=== PATIENT | male | born 1960 | race Caucasian/White ===

== ENCOUNTER 2018-01-31 12:15 | Emergency (ER) | payer OTHER ==
[2018-01-31 12:25] VITALS: RESP 16; TEMP 98.6
--- NOTE | 2018-01-31 12:36 | CPEKG ---
Heart Rate: 64 RR Interval: 938 P-R Interval: 172 QRSD Interval: 108 QT Interval: 424 QTC Interval: 438 P [place]: 21 QRS [place]: 55 T Wave [place]: 42 EKG Severity - ABNORMAL ECG - EKG Impression: SINUS RHYTHM EKG Impression: INCOMPLETE RIGHT BUNDLE BRANCH BLOCK Electronically Signed By: Vince Padgett 31-Jan-2018 20:32:40
[2018-01-31 12:52] LABS: PLATELET COUNT 246 10^3/uL (150-400)
--- NOTE | 2018-01-31 12:59 | EDPHY ---
HPI/HX/ROS/PE/MDM Narrative: CHIEF COMPLAINT: Right-sided chest pain HPI: The patient is a 57 y/o male complaining of an aching right-sided chest pain, onset Thursday, 2 days ago. For the past several weeks he has had dizziness and occipital headaches. He saw his PCP at [facility], who thought the patient was experiencing these symptoms due to dehydration. Two days ago was his last dizziness episode, but he also developed right-sided chest pain on Thursday. Today the chest pain migrated and is now in his mid- chest. He became concerned today as he was "not feeling right" due to the chest pain. The pain becomes exacerbated with exertion or at the end of a deep breath. The pain currently feels like a pulled muscle and is aching. He has been swimming and snowboarding recently and was unsure if he pulled a muscle while working out. He has not experienced chest pain or SOB during these activities. His mother's side of the family does have a history of cardiac disease. No fever, abdominal pain, paresthesias or numbness. REVIEW OF SYSTEMS: Aside from elements discussed in the HPI, a comprehensive 10-point review of systems was reviewed and is negative. PMH: Denies. No cardiac risk factors. SOCIAL HISTORY: Lives in [place], employed in [employer], single PHYSICAL EXAM: General: Patient is alert, in no acute distress. ENT: Eyes are normal to inspection. ENT inspection normal. Neck: Normal inspection. Full range of motion. Respiratory: No respiratory distress. Breath sounds normal bilaterally. Cardiovascular: Regular rate and rhythm. Strong peripheral pulses. Normal cap refill. Abdomen: The abdomen is nontender to palpation. There are no peritoneal signs. There are normal bowel sounds. Back: Normal to inspection. No tenderness to palpation. Skin: Normal color. No rash. Warm and dry. Extremities: Normal appearance. Full range of motion. Neuro: Oriented x3. Normal motor function. Normal sensory function. Portions of this note were transcribed by an ED scribe. I personally performed the history, physical exam, and medical decision making; and confirm the accuracy of the information in the transcribed note. ED Course: 1234: EKG was ordered and interpreted by myself. Please see [facility] system for official reading. 1400: Patient's laboratory and imaging results are normal. 1404: Reassessed patient and discussed imaging and laboratory results. I have advised him to follow up with Dr. Ladd, patent litigation associate, in the next week for his symptoms. Return precautions provided; patient is comfortable with this plan. MDM: This patient presents with atypical chest pain and his HEART score is quite low. Initial workup is negative and there is no evidence for ACS, PNA, PTX, TAD , PE. He is comfortable with plan for discharge. - Data Points Imaging Results: Imaging Impressions Chest X-Ray 01/31/18 12:41 Impression: Clear lungs except for minimal left basilar atelectasis. Imaging: I viewed and interpreted images myself Laboratory Results: Laboratory Results 01/31/18 12:45 01/31/18 12:41 01/31/18 01/31/18 01/31/18 12:45 12:45 12:41 WBC 4.55 10^3/uL 10^3/uL (3.80-9.50) RBC 5.17 10^6/uL 10^6/uL (4.40-6.38) Hgb 15.9 g/dL g/dL (13.7-17.5) Hct 45.1 % % (40.0-51.0) MCV 87.2 fL fL (81.5-99.8) MCH 30.8 pg pg (27.9-34.1) MCHC 35.3 g/dL g/dL (32.4-36.7) RDW 12.3 % % (11.5-15.2) Plt Count 246 10^3/uL 10^3/uL (150-400) MPV 9.8 fL fL (8.7-11.7) Neut % (Auto) 52.7 % % (39.3-74.2) Lymph % (Auto) 33.6 % % (15.0-45.0) [place] % (Auto) 9.7 % % (4.5-13.0) Eos % (Auto) 2.9 % % (0.6-7.6) Baso % (Auto) 0.9 % % (0.3-1.7) Nucleat RBC Rel Count 0.0 % % (0.0-0.2) Absolute Neuts (auto) 2.40 10^3/uL 10^3/uL (1.70-6.50) Absolute Lymphs (auto) 1.53 10^3/uL 10^3/uL (1.00-3.00) Absolute Monos (auto) 0.44 10^3/uL 10^3/uL (0.30-0.80) Absolute Eos (auto) 0.13 10^3/uL 10^3/uL (0.03-0.40) Absolute Basos (auto) 0.04 10^3/uL 10^3/uL (0.02-0.10) Absolute Nucleated RBC 0.00 10^3/uL 10^3/uL (0-0.01) Immature Gran % 0.2 % % (0.0-1.1) Immature Gran # 0.01 10^3/uL 10^3/uL (0.00-0.10) D-Dimer 0.39 ug/mLFEU ug/mLFEU (0.00-0.50) Sodium 144 mEq/L mEq/L (135-145) Potassium 4.6 mEq/L mEq/L (3.5-5.2) Chloride 108 mEq/L mEq/L (97-110) Carbon Dioxide 26 mEq/l mEq/l (22-31) Anion Gap 10 mEq/L mEq/L (8-16) BUN 13 mg/dL mg/dL (7-23) Creatinine 0.8 mg/dL mg/dL (0.7-1.3) Estimated GFR > 60 Glucose 97 mg/dL mg/dL (70-100) Calcium 9.4 mg/dL mg/dL (8.5-10.4) Troponin I < 0.012 ng/mL ng/mL (0.000-0.034) General Time Seen by Provider: 01/31/18 12:32 Initial Vital Signs: Initial Vital Signs Temperature (C) 37.0 C 01/31/18 12:22 Heart Rate 70 01/31/18 12:22 Respiratory Rate 16 01/31/18 12:22 O2 Sat (%) 96 01/31/18 12:22 O2 Delivery Mode Room Air Allergies/Adverse Reactions: No Known Allergies Allergy (Unverified 01/31/18 12:22) Home Medications: Medication Instructions Recorded NK [No Known Home Meds] 01/31/18 Departure - Departure Disposition: Home, Routine, Self-Care Clinical Impression: Chest pain Condition: Good Instructions: Chest Pain (ED) Additional Instructions: Follow-up with your primary doctor within 72 hours. Return to the Emergency Department for fever, chest pain, shortness of breath, increasing pain or other worsening of condition. Follow up with a patent litigation associate for further testing, as soon as possible, within one week. As we discussed, it is impossible to fully rule out heart disease as the cause of your chest pain in the emergency department. We would be happy to reevaluate you and observe you in the hospital at any time. Referrals: Yasmin Ladd MD [Medical Doctor] - As per Instructions Report Scribed for: Vince Padgett Report Scribed by: Olga Tafoya Date of Report: 01/31/18 Time of Report: 12:59
[2018-01-31 13:51] VITALS: BP 117/74; PULSE 53; O2SAT 97
== END 2018-01-31 14:22 | disposition home or self-care (01) ==
DX: R07.9 Chest pain, unspecified (principal)